=== PATIENT | female | born 1975 ===

== ENCOUNTER 2018-03-15 23:05 | Emergency (ER) | payer SELFPAY ==
[2018-03-16 00:44] LABS: #Basophils 0.1 thou/uL (0.0-0.2); #Eosinphils 0.4 thou/uL (0.0-0.7); #Lymphocytes 3.8 thou/uL (1.20-3.40); #Monocytes 0.7 thou/uL (0.11-0.59); #Neutrophils 5.4 thou/uL (1.40-6.50); %Basophils 1.1 % (0.0-1.0); %Eosinophils 4.1 % (0.0-10.0); %Lymphocytes 36.4 % (21.0-51.0); %Monocytes 6.6 % (0.0-10.0); %Neutrophils 51.8 % (42.0-75.0); Hemoglobin 11.8 g/dL (12.0-16.0); Mean Corpuscular HGB CONC 32.6 g/dL (32.0-36.0); Mean Corpuscular Hemoglobin 27.9 pg (27.0-31.0); Mean Corpuscular Volume 85.8 fL (78.0-98.0); Mean Platelet Volume 7.3 fL (7.4-10.4); Platelet Count 338 thou/uL (130-400); RBC Distribution Width 12.4 % (11.5-14.5); Red Blood Cell (RBC) Count 4.22 mill/uL (4.20-5.40); White Blood Cell (WBC) Count 10.5 thou/uL (4.8-10.8)
[2018-03-16 01:06] LABS: ALT (SGPT) 11 U/L (8-55); AST (SGOT) 12 U/L (5-34); Alkaline Phosphatase 54 U/L (40-150); Anion Gap 10 mmol/L (10-20); BUN (Urea Nitrogen) 10 mg/dL (7.0-18.7); Bilirubin, Total 0.3 mg/dL (0.2-1.2); Calc. Creatinine Clearance 0 mL/min (70-130); Calcium 9.4 mg/dL (7.8-10.44); Carbon Dioxide 27 mmol/L (22-29); Chloride 104 mmol/L (98-107); Estimated GFR-MDRD 73; Globulin 3.7 g/dL (2.4-3.5); Glucose 96 mg/dL (70-105); Potassium 4.1 mmol/L (3.5-5.1); Protein, Total 7.7 g/dL (6.0-8.3); Sodium 137 mmol/L (136-145)
[2018-03-16] MEDS ORDERED: Acetaminophen 325 MG TAB ONE (01:25)
--- NOTE | 2018-03-16 09:08 | ULT ---
PRELIMINARY REPORT/[facility]/EMERGENTY AFTER-HOURS PROCEDURE US Right Duplex Lower Extremity Veins, Limited EXAM DATE/TIME: 03/15/2018 11:47 PM CLINICAL HISTORY: 42 years old, female; Pain; Leg, lower; Right TECHNIQUE: Real-time Duplex ultrasound of the Right Lower Extremity with 2-D tenorio scale, color Doppler flow and spectral waveform analysis. Limited exam was focused on the right lower extremity veins. COMPARISON: No relevant prior studies available. FINDINGS: Right deep veins: Unremarkable. The common femoral, femoral, popliteal and visualized calf veins are patent without thrombus. Normal compressibility, augmentation response and Doppler waveforms. Right superficial veins: Unremarkable. Saphenofemoral junction is patent without thrombus. Soft tissues: No popliteal cyst. IMPRESSION: No evidence of deep vein thrombosis. Thank you for allowing us to participate in the care of your patient. Dictated and Authenticated by: Benigno Tee MD 03/16/2018 1:13 AM Central Time ([place] & [place]) FINAL REPORT LEFT LOWER EXTREMITY VENOUS DOPPLER ULTRASOUND: DTE: 03/15/2018. COMPARISON: None. HISTORY: Pain, edema, and swelling, assess for DVT. FINDINGS/IMPRESSION: The venous structures of the right lower extremity are assessed with color flow/spectral analysis. I agree with the preliminary [facility] report. No evidence for deep venous thrombosis of the right lower extremity. This is a right lower extremity examination. POS: [facility]
== END 2018-03-16 02:03 | disposition home or self-care (01) ==
LOC: ERS 23:05
DX: M25.561 Pain in right knee (principal); M79.651 Pain in right thigh; M79.661 Pain in right lower leg
CPT/HCPCS: 36415; 80053; 84443; 85025